=== PATIENT | female | born 1965 | race African-American/Black ===

== ENCOUNTER → 2017-03-01 | Outpatient (CLI) | payer OTHER ==
[~2017-03-01] MED LIST: ACETAMINOPHEN650 M1 PO; ACYCLOVIR400 MG PO; ALBUTEROL MININEB INH; ALBUTEROL17 GM IH; ALBUTEROL17 GM INH; CARDIZEM30 MG PO; CARTIA XT PO; CIPRO PO; DARVOCET-N 1001 TAB PO; DILTIAZEM ER120 M2 PO; DOXYCYCLINE HY100 M3 PO; FAMOTIDINE PO; FERROUS SULFATE PO; IBUPROFEN400 MG PO; IRON325 ( 65 ) PO; IRON325 ( 651 PO; LASIX20 MG PO; LORTAB 5/500 TA1 TA1 PO; NILSTAT PO; PHENERGAN PO; PREDNISONE PO; PREDNISONE10 MG/DOSE PO; PRILOSEC PO; PROTONIX PO; PROVENTIL17 GM IH; SYMBICORT INH; VICODIN 5/1 TAB 5/50; VICODIN 5/1 TAB 5/50 PO; ZANTAC150 M1 PO; ZOVIRAX800 MG PO
--- NOTE | ~2017-03-01 | US24 ---
[facility] A Service of [facility] & [facility] RADIOLOGY TEXT RESULTS PATIENT: RADHA SILVEIRA LOCATION: [facility] : 67 UNIT #: [id number] AGE: [address]: AARTI ASHER APRN SEX: F ORDER DR: [id number] [facility] [address] [place], [place] [address] [id number] O MR#: [id number] Acc #: [id number] NAME: RADHA SILVEIRA : 1965 SEX: F STUDY DATE/TIME: 03/01/2017 10:14 UNIT: [facility] ROOM: STUDY DESCRIPTION: US Breast Unilateral Attending Physician: Aarti Asher Aprn Referring Physician: Aarti Asher Aprn Ordering Physician: Aarti Asher Aprn Primary Care Physician: Aarti Asher Aprn MEDICAL IMAGING REPORT This report is preliminary unless electronic signature is present EXAM Targeted ultrasound left breast 03/01/2017 INDICATIONS A 51-year-old female complaining of pain in the left breast for the past month. Shooting intermittent pain but no palpable abnormality. Pain in the medial aspect of the left breast. TECHNIQUE Targeted ultrasound of the left breast was performed in the area patient pain symptoms. This spanned the 6 o'clock to the 11 o'clock positions. Correlation is made with mammograms 05/14/2016 and 05/02/2016. FINDINGS Left breast: The patient was initially scanned independently by the technologist and then rescanned in my presence. Limited physical exam (with patient consent) was also performed by me here in the department. No palpable abnormality was identified in the area of patient pain symptoms. Previously biopsied nodule in the 6 o'clock position left breast noted with a biopsy marker present. There is dense breast tissue in the upper inner left breast at 10 o'clock. There is some mildly prominent ducts in the medial hemisphere left breast. Coalescence of ducts at 11 o'clock, simulating a minimally complicated cyst. This however represents a coalescence of ducts under real-time surveillance spanning a distance of about 6 mm. In the 11 o'clock position left breast 10 cm from the nipple, there are some more focally dilated peripheral ducts and intimately associated with the ducts, there appears to be an intraluminal filling defect rather than an adjacent mass. Dimensions are approximately 8 x 6 x 5 mm. Faint internal color-flow identified with color interrogation. An intraductal mass could present similarly, such as a papilloma. Ultrasound-guided core STS. [facility] A Service of [facility] RADIOLOGY TEXT RESULTS PATIENT: ARDHA SILVEIRA LOCATION: [facility] : 67 UNIT #: [id number] AGE: [address]: AARTI ASHER APRN SEX: F ORDER DR: biopsy recommend for further assessment. Findings and recommendations for biopsy have been discussed with the patient. She has voiced understanding and agreement. Recommendation for biopsy has also been personally telephoned to and discussed with the breast zoo caretaker. They are in the process of notifying the ordering healthcare provider office of Aarti Asher, regarding the findings and recommendation for biopsy. The patient has declined diagnostic mammography to complete the evaluation of the left breast along with the left breast ultrasound here in the department today. She indicated that her breast is too tender for mammography today. At this point we will proceed with the ultrasound-guided core biopsy and the patient should undergo a diagnostic mammogram as soon as possible to complete the diagnostic workup of the left breast. This was discussed with her in great detail. IMPRESSION 1. In the 11 o'clock position left breast, there are some more focally dilated peripheral ducts with a probable intraluminal mass measuring up to 8 x 5 mm. Ultrasound-guided core biopsy recommended for further assessment. 2. Imaging of the remainder of the medial hemisphere left breast demonstrates no additional suspicious finding. Previously biopsied nodule at 6 o'clock noted. 3. The patient and the breast zoo caretaker are aware of the recommendations for biopsy. See discussion above. 4. The patient should undergo diagnostic mammography to complete diagnostic workup of the left breast as described; however, she has declined mammography today due to pain symptoms in the left breast. Patients over the age of 40 are entered into a reminder system with target due date for the next mammogram. A result letter will also be sent to the patient. BIRADS: 4 Suspicious Abnormality; Biopsy Should Be Considered STAT * RESULT Dictated by... Jorge Villeda M.D. THIS IS AN ELECTRONICALLY VERIFIED REPORT Jorge Villeda M.D. at 03/01/2017 11:46 AM RODY/ivory TD: 03/01/2017 11:11 [facility] A Service of [facility] & [facility] RADIOLOGY TEXT RESULTS PATIENT: RADHA SILVEIRA LOCATION: [facility] : 67 UNIT #: [id number] AGE: [address]: AARTI ASHER APRN SEX: F ORDER DR: RIAZ #: [id number] MEDICAL IMAGING REPORT Page 1 of 1 COPY
== END | disposition home or self-care (01) ==
LOC: CWCC 09:54
DX: N64.4 Mastodynia (principal); R92.8 Other abnormal and inconclusive findings on diagnostic imaging of breast
CPT/HCPCS: 76641

== ENCOUNTER → 2017-03-01 | Outpatient (CLI) | payer OTHER ==
--- NOTE | ~2017-03-01 | CR181 ---
[facility] A Service of [facility] & [facility] RADIOLOGY TEXT RESULTS PATIENT: RADHA SILVEIRA LOCATION: [facility] : 67 UNIT #: [id number] AGE: [address]: AARTI ASHER APRN SEX: F ORDER DR: [id number] [facility] [address] [address] [id number] O MR#: [id number] Acc #: [id number] NAME: RADHA SILVEIRA : 1965 SEX: F STUDY DATE/TIME: 03/01/2017 11:52 UNIT: [facility] ROOM: STUDY DESCRIPTION: CR Lumbar Spine 2 or 3 Views Attending Physician: Aarti Asher Aprn Referring Physician: Aarti Asher Aprn Ordering Physician: Aarti Asher Aprn Primary Care Physician: Aarti Asher Aprn MEDICAL IMAGING REPORT This report is preliminary unless electronic signature is present EXAM Lumbar spine series HISTORY Low back pain for the past 2 months. TECHNIQUE Three views of the lumbar spine were obtained. FINDINGS AP and lateral projections of the lumbar segment show good mineralization of both anterior and posterior elements. They are all anatomically normal without indication of fracture, dislocation, or malignant change of a sclerotic or lytic type. There is no congenital defect noted. The sacroiliac joints are normal. IMPRESSION Normal lumbar spine. Dictated by... Doron Chin M.D. THIS IS AN ELECTRONICALLY VERIFIED REPORT Doron Chin M.D. at 03/04/2017 11:44 AM Leti TD: 03/01/2017 17:27 JOB #: [id number] MEDICAL IMAGING REPORT Page 1 of 1 COPY
== END | disposition home or self-care (01) ==
LOC: CRAD 11:33
DX: M54.5 Low back pain (principal)
CPT/HCPCS: 72100

== ENCOUNTER → 2017-03-14 | Outpatient (CLI) | payer OTHER ==
--- NOTE | ~2017-03-14 | US200 ---
[facility] A Service of [facility] & [facility] RADIOLOGY TEXT RESULTS PATIENT: RADHA SILVEIRA LOCATION: [facility] : 67 UNIT #: [id number] AGE: [address]: AARTI ASHER APRN SEX: F ORDER DR: [id number] [facility] [address] [place], [place] [address] [id number] O MR#: [id number] Acc #: [id number] NAME: RADHA SILVEIRA : 1965 SEX: F STUDY DATE/TIME: 03/14/2017 9:30 UNIT: [facility] ROOM: STUDY DESCRIPTION: US Breast Guided Bx 1st Lesion Attending Physician: Aarti Asher Aprn Referring Physician: Aarti Asher Aprn Ordering Physician: Aarti Asher Aprn Primary Care Physician: Aarti Asher Aprn MEDICAL IMAGING REPORT This report is preliminary unless electronic signature is present REVISED REPORT SEE ADDENDUM EXAM Left breast mass HISTORY Intraductal mass. Ultrasound-guided core needle biopsy. PROCEDURE The risks and benefits of the procedure were discussed with the patient. Specifically, the low risk of bleeding and low risk of infection were emphasized. The patient had an opportunity to ask questions and informed consent was obtained. Patient's prior imaging was reviewed. The 0.8 cm intraductal mass was confirmed with ultrasound. This is at the 11 o'clock position approximately 10 cm from the nipple. A segundo was placed on the patient's skin for a needle entry site. The area was prepped and draped in usual sterile fashion. 1% lidocaine was infiltrated into the skin and along the expected path of the biopsy device. A small skin amanda was made with a scalpel. Under ultrasound guidance, a 13-gauge coaxial needle was advanced to the periphery of the mass. Subsequently, the inner stylet of the Achieve coaxial needle was removed and Achieve 00biopsy device was placed within the outer stylet. Four core biopsies of the mass were obtained. Samples were excellent quality. Next, a biopsy clip was placed adjacent to the mass under ultrasound guidance. The clip biopsy marker device and the outer stylet were removed in unison. Pressure was held over the skin entry site and biopsy site for 5 minutes until stasis. The patient tolerated the procedure well with no immediate complications. Post-procedural mammogram confirms clip deployment near the mass. [facility] A Service of [facility] RADIOLOGY TEXT RESULTS PATIENT: RADHA SILVEIRA LOCATION: [facility] : 67 UNIT #: [id number] AGE: [address]: AARTI ASHER ARBORIST CLIMBER SEX: F ORDER DR: GALDINO Successful ultrasound-guided core biopsy of the 8 mm intraductal mass of the left breast. Dictated by... Chucho Cardona M.D. THIS IS AN ELECTRONICALLY VERIFIED REPORT Chucho Cardona M.D. at 03/14/2017 4:27 PM Odette TD: 03/14/2017 15:21 JOB #: [id number] EXAM Ultrasound-guided left breast biopsy. COMPARISON The patient's prior imaging was reviewed. 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 These findings are concordant with the imaging appearance. Dictated by... Chucho Cardona M.D. THIS IS AN ELECTRONICALLY VERIFIED REPORT Chucho Cardona M.D. at 03/21/2017 3:41 PM Kary TD: 03/19/2017 18:51 JOB #: [id number] CC: Antonino/invision Please Delete MEDICAL IMAGING REPORT Page 1 of 1 COPY
--- NOTE | ~2017-03-14 | MY14 ---
[facility] A Service of [facility] & [facility] RADIOLOGY TEXT RESULTS PATIENT: RADHA SILVEIRA LOCATION: [facility] : 67 UNIT #: [id number] AGE: [address]: AARTI ASHER APRN SEX: F ORDER DR: [id number] [facility] [address]. [place], [place] [address] [id number] O MR#: [id number] Acc #: [id number] NAME: RADHA SILVEIRA : 1965 SEX: F STUDY DATE/TIME: 03/14/2017 10:23 UNIT: [facility] ROOM: STUDY DESCRIPTION: MY Post Bx Film Attending Physician: Aarti Asher Aprn Referring Physician: Aarti Asher Aprn Ordering Physician: Aarti Asher Aprn Primary Care Physician: Aarti Asher Aprn MEDICAL IMAGING REPORT This report is preliminary unless electronic signature is present EXAM MY Post Bx Film INDICATION Left breast mass status post ultrasound-guided core biopsy and left breast clip placement. FINDINGS Two views of the left breast were obtained. The biopsy device was confirmed in the upper outer quadrant of the left breast immediately adjacent to the biopsy mass. IMPRESSION Successful clip deployment status post ultrasound-guided core needle biopsy. Dictated by... Chucho Cardona M.D. THIS IS AN ELECTRONICALLY VERIFIED REPORT Chucho Cardona M.D. at 03/14/2017 2:08 PM GENARO/katie TD: 03/14/2017 13:03 JOB #: [id number] MEDICAL IMAGING REPORT Page 1 of 1 COPY
== END | disposition home or self-care (01) ==
LOC: CWCC 08:54
DX: N63 Unspecified lump in breast (principal)
CPT/HCPCS: 88305; G0204